=== PATIENT | female | born 1995 | race Caucasian/White ===

== ENCOUNTER 2018-07-25 16:45 | Emergency (ER) | payer OTHER, MEDICAID ==
[~2018-07-25] VITALS: Ht 157.5 cm; Wt 92.1 kg
[2018-07-25 17:12] LABS: URINE BILIRUBIN NEGATIVE (Negative); URINE BLOOD NEGATIVE (Negative); URINE CLARITY CLOUDY; URINE COLOR YELLOW; URINE GLUCOSE-RANDOM NEGATIVE (Negative); URINE KETONES NEGATIVE (Negative); URINE LEUKOCYTES-REFLEX NEGATIVE (Negative); URINE NITRITE-REFLEX NEGATIVE (Negative); URINE PROTEIN NEGATIVE (Negative); URINE UROBILINOGEN 0.2 E.U./dl (0.2-1.0)
[2018-07-25 17:28] LABS: SQUAMOUS >10 Many /LPF (0-3)
[2018-07-25 17:29] LABS: AMORPHOUS URATES Moderate /LPF (None Seen); BACTERIA-REFLEX 1-9 Few /HPF (None Seen); CASTS None Seen /LPF (None Seen); MUCUS 0-3 Light strn/LPF (None Seen); URINE RBC None Seen /HPF (0-2); URINE WBC-REFLEX None Seen /HPF (0-5)
[2018-07-25 17:37] LABS: ABSOLUTE BASOPHILS 0.1 thou/uL (0.0-0.2); ABSOLUTE EOSINOPHILS 0.1 thou/uL (0.0-0.7); ABSOLUTE LYMPHOCYTES 3.3 thou/uL (0.8-5.3); ABSOLUTE NEUTROPHILS 6.7 thou/uL (1.6-8.1); BASOPHILS 0.6 %; EOSINOPHILS 0.9 %; HEMOGLOBIN 14.9 gm/dL (12.0-15.0); LYMPHOCYTES 29.6 %; MCH 28.3 pg (26.0-34.0); MCHC 33.8 g/dL (28.0-37.0); MCV 83.7 fL (80.0-100.0); MONOCYTES 8.9 %; MPV 9.4 fl. (7.2-11.1); NUCLEATED RBCS 0 /100WBC; PLATELET COUNT* 218 thou/uL (150-400); RBC 5.26 mil/uL (4.20-5.00); RDW-CV 13.6 % (10.5-14.5); WBC 11.1 thou/uL (4.0-11.0)
[2018-07-25 17:52] LABS: ALBUMIN 3.9 g/dL (3.4-5.0); CALCIUM 9.1 mg/dL (8.5-10.1); CREATININE 0.7 mg/dL (0.6-1.3); TOTAL BILIRUBIN 0.2 mg/dL (<0.1-1.0); TOTAL PROTEIN 8.6 g/dL (6.4-8.2)
[2018-07-25 18:18] VITALS: BP 126/70
--- NOTE | 2018-07-26 10:39 | EKG ---
[place] [address] ELECTROCARDIOGRAM REPORT Name: JADON SANCHEZ Room: [facility]#: [id number] Admission: 07/25/18 Attend Phys: Discharge: 07/25/18 Date of : [birth year] Report #: [id number] THIS REPORT FOR: //name// [facility] ED Test Date: 2018-07-25 Test Time: 17:34:03 Pat Name: JADONJORGE SANCHEZ Department: Room: Gender: F [employer] Sales: Alma Rosa RODNEY : 1995 Requested By: Fatoumata Solomon Order Number: [id number] MD: Mango Jensen Measurements Intervals Mutual Rate: 77 P: 24 TN: 178 QRS: 76 QRSD: 78 T: 27 QT: 387 QTc: 438 Interpretive Statements Sinus rhythm No previous ECG available for comparison Electronically Signed On 07-26-2018 10:39:44 CDT by Mango Jensen [email or web address] <ELECTRONICALLY SIGNED> By: Mango Jensen MD, [facility] 07/26/18 1039 1734 1734 Mango Jensen MD, FACC /EPI
== END 2018-07-25 18:20 | disposition home or self-care (01) ==
LOC: M.ERS 16:45
PROVIDERS: Nurse Practitioner Family
DX: H61.21 Impacted cerumen, right ear (principal); J30.2 Other seasonal allergic rhinitis; R42 Dizziness and giddiness; Z98.890 Other specified postprocedural states